=== PATIENT | male | born 1955 | race Caucasian/White ===

== ENCOUNTER 2023-03-18 14:33 | Outpatient (REF) | payer MEDICARE, OTHER, SELFPAY ==
--- NOTE | ~2023-03-18 | MR_ITS ---
EXAMINATION: MR THORACIC SPINE WITHOUT AND WITH CONTRAST CLINICAL INFORMATION: Thoracic myelopathy. COMPARISON: None TECHNIQUE: MRI of the thoracic spine was obtained using routine sequences without and with contrast. A total of 10 mL Gadavist was intravenously administered. FINDINGS: The thoracic vertebral bodies maintain normal heights and alignment. There is multilevel intervertebral disc height loss including advanced disc height loss in the lower thoracic spine and in the upper lumbar spine. Robust endplate edema is seen at the T12-L1 level. Mild endplate edema seen at T9-T10 and T11-T12. The thoracic cord signal appears normal. There is no abnormal enhancement of the spinal canal. C6-C7: Uncovertebral hypertrophy resulting in moderate to severe bilateral neural foraminal stenosis. T4-T5: Small central protrusion. No stenosis. T5-T6: Small central protrusion. No stenosis. T8-T9: Disc bulging. No stenosis. T9-T10: Disc bulging. No stenosis. T10-T11: Disc bulging with left paracentral protrusion. Mild bilateral neural foraminal stenosis. T11-T12: Disc bulging with left paracentral protrusion. Mild bilateral neural foraminal stenosis. T12-L1: Disc bulging. No spinal canal or neural foraminal stenosis. There are bilateral T2 hyperintense renal cyst for which no additional imaging is recommended. MR/MR thoracic spine wo/w con IMPRESSION: Multilevel degenerative spondylotic changes without significant narrowing of the spinal canal. No cord signal abnormality or abnormal enhancement. Neural foraminal stenosis appears moderate to severe bilaterally at C6-C7. Endplate edema is seen at T12-L1 and to a lesser extent at T9-T10 and T11-T12.
== END 2023-03-18 14:34 | disposition home or self-care (01) ==
LOC: HO.MRI 14:33
PROVIDERS: Visit Provider Psychiatry & Neurology Neurology
DX: M47.14 Other spondylosis with myelopathy, thoracic region (principal)
CPT/HCPCS: 72157; A9585

== ENCOUNTER 2023-04-08 12:55 | Outpatient (REF) | payer MEDICARE, OTHER, SELFPAY ==
--- NOTE | ~2023-04-08 | MR_ITS ---
MR CERVICAL SPINE WITHOUT CONTRAST CLINICAL INFORMATION: Spinal stenosis. COMPARISON: None available. TECHNIQUE: MRI of the cervical spine was obtained using routine sequences without contrast. FINDINGS: Partially imaged leftward convex scoliotic curvature of the thoracic spine. Cervical alignment is normal. There is severe disc volume loss 4 and C4-C5. Moderate disc volume loss at C5-C6 and C6-C7. There is no bone marrow edema. There are no acute fractures. Craniocervical junction is unremarkable. The partially imaged intracranial compartment is unremarkable. The cervical arterial flow voids are maintained. There are no significant extraspinal soft tissue findings. C2-C3: Advanced uncovertebral joint hypertrophy and hypertrophic facet arthropathy result in moderate left and mild right foraminal stenosis. Disc osteophyte mildly narrows the central canal. C3-C4: Osteophytic ridging mildly narrows the central canal. No foraminal stenosis. C4-C5: Disc osteophyte and ligamentum flavum thickening result in severe central canal stenosis and mass effect on the cord. Intramedullary T2 signal changes within the left cord at this level, likely chronic myelomalacia however the superimposed sequela of acute compressive myelopathy should be clinically correlated. Advanced uncovertebral joint hypertrophy and hypertrophic facet arthropathy result in severe bilateral foraminal stenosis. C5-C6: Disc osteophyte mildly narrows the central canal. Advanced uncovertebral joint hypertrophy and hypertrophic facet arthropathy result in severe bilateral foraminal stenosis. C6-C7: Disc osteophyte mildly narrows the central canal. Advanced uncovertebral joint hypertrophy and hypertrophic facet arthropathy result in severe bilateral foraminal stenosis. C7-T1: Slight annular disc bulge without central canal stenosis nor significant foraminal stenosis. MR/MR cervical spine wo con IMPRESSION: - At C4-C5, advanced multifactorial degenerative changes result in severe central canal stenosis, mass effect on the cervical cord, and severe bilateral foraminal stenosis. Intramedullary T2 signal changes within the left cord at this level, likely chronic myelomalacia however the superimposed sequela of acute compressive myelopathy should be clinically correlated. - Spondylitic changes also result in moderate left C2-C3 and severe bilateral C5-C6 and C6-C7 foraminal stenosis.
== END 2023-04-08 12:56 | disposition home or self-care (01) ==
LOC: HO.MRI 12:55
PROVIDERS: Visit Provider Psychiatry & Neurology Neurology
DX: M48.02 Spinal stenosis, cervical region (principal)
CPT/HCPCS: 72141